=== PATIENT | male | born 1950 | race Caucasian/White ===

== ENCOUNTER 2021-10-07 10:24 | Observation (INO) | payer OTHER ==
[~2021-10-07] VITALS: Ht 166.4 cm; Wt 64.5 kg
[2021-10-07 11:12] LABS: BASO # 0.1 K/mm3 (0.0-0.2); BASO % 0.6 % (0.0-2.0); EOS # 0.2 K/mm3 (0.0-0.7); EOS % 1.6 % (0.0-4.0); GRAN # 4.5 K/mm3 (1.4-6.5); GRAN % 46.3 % (42.2-75.2); HEMATOCRIT 44.2 % (42.0-52.0); HEMOGLOBIN 15.4 g/dl (13.5-18.0); LYMPH # 3.9 K/mm3 (1.2-3.4); MEAN CELL VOLUME 93 fl (80.0-100.0); MEAN CORPUSCULAR HEMOGLOBIN 32 pg (27-31); MEAN CORPUSCULAR HGB CONC 35 g/dl (33.0-37.0); MEAN PLATELET VOLUME 10.1 fl (7.4-10.4); MONO # 1.1 K/mm3 (0.1-0.6); MONO % 11.3 % (1.7-9.3); PLATELET COUNT 167 K/mm3 (130-400); RED BLOOD COUNT 4.78 M/mm3 (4.20-5.60); REDCELL DISTRIBUTION WIDTH-CV 13.8 % (11.5-14.5)
[2021-10-07 11:20] LABS: PROTHROMBIN TIME 11.6 SECONDS (9.7-12.8)
[2021-10-07 11:31] LABS: ALANINE AMINOTRANSFERASE 20 U/L (0-55); ALBUMIN 3.5 gm/dL (3.4-4.8); ALKALINE PHOSPHATASE 52 U/L (40-150); ANION GAP 9 mmol/L (7-16); AST,SGOT 27 U/L (5-34); BILIRUBIN,TOTAL 0.5 mg/dL (0.2-1.2); BLOOD UREA NITROGEN 17 mg/dL (8-26); CALCIUM 9.3 mg/dL (8.4-10.2); CARBON DIOXIDE 25 mmol/L (23-31); CHLORIDE 101 mmol/L (98-107); CREATININE, serum 0.94 mg/dL (0.72-1.25); GLUCOSE 93 mg/dL (70-99); POTASSIUM 4.4 mmol/L (3.5-4.5); SODIUM 135 mmol/L (136-145); TOTAL PROTEIN 7.1 gm/dL (6.2-8.1)
[2021-10-07 11:38] LABS: TROPONIN-I < 0.010 ng/mL (0.00-0.033)
[2021-10-07] MEDS ORDERED: DEPAKOTE500 MG PO (11:38)
[2021-10-07] MEDS ORDERED: MOBIC15 MG PO (11:38)
[2021-10-07] MEDS ORDERED: VITAMIN B650 MG (11:38)
[2021-10-07] MEDS ORDERED: PROAIR HFA0.09 MG/AC IH (11:38)
[2021-10-07] MEDS ORDERED: B-121000 MCG PO (11:38)
[2021-10-07] MEDS ORDERED: LIPITOR 80MG80 MG PO (11:39)
[2021-10-07 14:17] LABS: COLLECTION METHOD CLEAN CATCH
[2021-10-07 14:23] LABS: PH 7 (5-8); SQUAMOUS EPITHELIAL None Seen /hpf (0-10); URINE APPEARANCE Clear (CLEAR/HAZY); URINE BACTERIA None Seen /hpf (NONE SEEN); URINE BILIRUBIN Negative (NEGATIVE); URINE BLOOD 1+ (NEGATIVE); URINE COLOR Yellow (YELLOW); URINE GLUCOSE Negative (NEGATIVE); URINE KETONE Negative (NEGATIVE); URINE LEUKOCYTE ESTERASE Negative (NEGATIVE); URINE NITRATE Negative (NEGATIVE); URINE PROTEIN(semi-quant) Negative (NEGATIVE); URINE UROBILINOGEN Negative (NEGATIVE); URINE WBC 0-2 /hpf (0-2)
--- NOTE | 2021-10-07 15:41 | NUR ---
Pt. escorted to unit via wheelchair from ED. He is alert & oriented. Denies pain. No tremors noted at this time. Skin is intact. Pt. oriented to room, call light, bathroom, visitor policy. Pt. brought in home meds - those have been placed in med room. Attempted to notify pharmacy but they may be gone for the day. Pt. denies further needs at this time. Call light is within his reach
[2021-10-07 15:57] VITALS: BP 176/93; PULSE 76
--- NOTE | 2021-10-07 17:45 | NUR ---
Radiology here to escort patient for CT angiogram
--- NOTE | 2021-10-07 18:30 | NUR ---
Pt is back from radiology. Per radiology staff, IV site to left ac has infiltrated. Site noted to be puffy and slightly red. Pt. currently denies pain. Will attempt to initiate new IV site
[2021-10-07 19:45] VITALS: BP 178/82; PULSE 66; TEMP 98.2
--- NOTE | 2021-10-07 20:00 | NUR ---
IV STARTED TO LFA ON FIRST ATTEMPT. WILL COMPLETE CURRENT IVF INFUSING, THEN CAP. PT IS ALERT AND ORIENTED X4. DENIES DIZZINESS OR WEAKNESS. BED ALARM ON FOR SAFETY.
--- NOTE | 2021-10-07 21:00 | NUR ---
HS DEPAKOTE GIVEN, PT TAKES WITHOUT PROBLEM. ASSISTED TO BATHROOM, STEADY GAIT, VOIDS AND BACK TO BED.
[2021-10-07 23:38] VITALS: BP 163/67; PULSE 70; TEMP 98.2
[2021-10-08] VITALS (9 sets, daily range): BP systolic 145–210; BP diastolic 79–113; PULSE 75–101; TEMP 97.9–98.9
--- NOTE | 2021-10-08 03:00 | NUR ---
PT AMBULATES IN HALLWAY, UNSURE WHERE BATHROOM IS, REDIRECTED BACK TO ROOM, VOIDS AND BCK TO BED. BED ALARM ON.
[2021-10-08 06:57] LABS: BASO # 0.1 K/mm3 (0.0-0.2); BASO % 0.8 % (0.0-2.0); EOS # 0.3 K/mm3 (0.0-0.7); EOS % 3.5 % (0.0-4.0); GRAN % 47.5 % (42.2-75.2); HEMATOCRIT 44.8 % (42.0-52.0); HEMOGLOBIN 15.3 g/dl (13.5-18.0); LYMPH # 2.9 K/mm3 (1.2-3.4); LYMPH % 35.1 % (20.0-51.0); MEAN CELL VOLUME 95 fl (80.0-100.0); MEAN CORPUSCULAR HEMOGLOBIN 33 pg (27-31); MEAN CORPUSCULAR HGB CONC 34 g/dl (33.0-37.0); MEAN PLATELET VOLUME 10.8 fl (7.4-10.4); MONO # 1.1 K/mm3 (0.1-0.6); MONO % 12.9 % (1.7-9.3); PLATELET COUNT 161 K/mm3 (130-400); REDCELL DISTRIBUTION WIDTH-CV 13.7 % (11.5-14.5)
[2021-10-08 07:10] LABS: ALBUMIN 3.2 gm/dL (3.4-4.8); CALCIUM 8.6 mg/dL (8.4-10.2); CREATININE, serum 0.87 mg/dL (0.72-1.25); MAGNESIUM 2.1 mg/dL (1.6-2.6); PHOSPHOROUS 3.8 mg/dL (2.3-4.7); POTASSIUM 4.4 mmol/L (3.5-4.5)
--- NOTE | 2021-10-08 08:00 | NUR ---
PATIENT IS ORIENTED BUT DOES DISPLAY OCCATIONAL FORGETFULNESS. VSS ON TELE. DENIES PAIN OR NAUSEA. PATIENT SCHEDULED FOR SEVERAL TEST TODAY INCLUDING MRI. LEFT FORARM IV TO INT. NEURO CHECKS Q4H. HEAD TO TOE ASSESSMENT COMPLETE. AM MEDS GIVEN. NO OTHER NEEDS AT THIS TIME. CALL LIGHT IN REACH.
--- NOTE | 2021-10-08 14:01 | NUR ---
plant maintenance worker met with patient to discuss discharge plan. Patient currently lives at home alone in [place]. He reports to being fully independent with his ADL's and does not use any DME to assist with mobility. Patient does not have any home oxygen needs. [facility] is the [place] [facility]. Patient states that he does have a DPO[employer] listing his daughter Wade Rodriguez ([phone]) as his agent. Discharge plan: Home; pending PT baljit
--- NOTE | 2021-10-08 18:30 | NUR ---
PATIENT C/O YEE. CALLED HOSPITALIST, GAVE PRN TYLENOL
--- NOTE | 2021-10-08 21:00 | NUR ---
Shift report received, assumed care at 1900. Assessment complete at this time. A&Ox3 but appears to be foregetful. Denies pain/nausea/shortness of breath. VS remain stable. Currently INT to left FA-flushes without difficulty. SCDs bilat. TELE reports SR. NC have been WNL. Denies current needs. Call light in reach. Will monitor.
[2021-10-09] VITALS (7 sets, daily range): BP systolic 145–190; BP diastolic 83–105; PULSE 66–86; TEMP 97.7–98.1
--- NOTE | 2021-10-09 | NUR ---
Neuro WNL-very drowsy. Denies current needs. Call light in reach. Will monitor.
--- NOTE | 2021-10-09 03:00 | NUR ---
Order clarification on ordered IV fluids-TRACEE Cox states fluids can be DCd.
--- NOTE | 2021-10-09 05:45 | NUR ---
Has had an uneventful night. Appeared to be resting well. NC WNL. VS remained stable. Patient appears to be foregetful but A&O. Denies current needs. Call light in reach. Will monitor.
[2021-10-09 06:42] LABS: BASO # 0.1 K/mm3 (0.0-0.2); EOS # 0.2 K/mm3 (0.0-0.7); EOS % 2.2 % (0.0-4.0); GRAN # 4.5 K/mm3 (1.4-6.5); HEMATOCRIT 44.5 % (42.0-52.0); HEMOGLOBIN 15.9 g/dl (13.5-18.0); LYMPH # 3.2 K/mm3 (1.2-3.4); LYMPH % 34.7 % (20.0-51.0); MEAN CELL VOLUME 92 fl (80.0-100.0); MEAN CORPUSCULAR HEMOGLOBIN 33 pg (27-31); MEAN CORPUSCULAR HGB CONC 36 g/dl (33.0-37.0); MEAN PLATELET VOLUME 10.5 fl (7.4-10.4); MONO # 1.1 K/mm3 (0.1-0.6); MONO % 11.8 % (1.7-9.3); PLATELET COUNT 172 K/mm3 (130-400); RED BLOOD COUNT 4.85 M/mm3 (4.20-5.60); REDCELL DISTRIBUTION WIDTH-CV 13.7 % (11.5-14.5)
[2021-10-09 07:01] LABS: ALBUMIN 3.3 gm/dL (3.4-4.8); CALCIUM 8.8 mg/dL (8.4-10.2); CREATININE, serum 0.86 mg/dL (0.72-1.25); PHOSPHOROUS 3.5 mg/dL (2.3-4.7); POTASSIUM 3.9 mmol/L (3.5-4.5)
[2021-10-09] MEDS ORDERED: ASPIRIN 81M81 MG/TA2 PO (07:58)
[2021-10-09] MEDS ORDERED: ZESTRIL 10MG10 MG PO (07:58)
[2021-10-09] MEDS ORDERED: NORVASC 5MG5 MG/TAB PO ×3 (08:02→17:12)
--- NOTE | 2021-10-09 13:29 | NUR ---
First visit from the cleaning technician. No needs right now.
--- NOTE | 2021-10-09 15:50 | NUR ---
PATIENT AFTERNOON VITALS NOTED ELEVATED B/P. NOTIFIED HOSPITALIST. SEE NEW ORDER BEFORE DISCHARGE. STILL OKAY WITH DISCHARGE
--- NOTE | 2021-10-09 16:30 | NUR ---
UPDATED HOSPITALIST WITH C/P CHECKS. ORDERS TO RECHECK B/P AT 1700 AND CALL RESULTS.
--- NOTE | 2021-10-09 17:26 | NUR ---
PATIENT B/P IMPROVED AND PATIENT CLEARED FOR DISCHARGE BY . GAVE DISCHARGE INSTRUCTIONS, E-SCRIPTS SENT, AND F/U APT DISCUSSED. SON AT BEDSIDE. IV DC'D & COVERED WITH GAUZE & COBAN. PATIENT IS DRESSED, PACKED AND ESCORTED OUT VIA AMBULATORY TO PERSONAL VEHICLE.
== END 2021-10-09 17:30 | disposition home or self-care (01) ==
LOC: COL.ER 10:24 → SURG 13:13
PROVIDERS: Emergency Medicine; ADMIT Internal Medicine
DX: R42 Dizziness and giddiness (principal); I67.1 Cerebral aneurysm, nonruptured; I11.9 Hypertensive heart disease without heart failure; I34.0 Nonrheumatic mitral (valve) insufficiency; G40.A09 Absence epileptic syndrome, not intractable, without status epilepticus; I70.90 Unspecified atherosclerosis; F17.210 Nicotine dependence, cigarettes, uncomplicated; Z95.828 Presence of other vascular implants and grafts; Z79.899 Other long term (current) drug therapy
CPT/HCPCS: 99233-AI; A9575; G0378; J2060; J7030; Q9967

== ENCOUNTER → 2023-07-15 | Outpatient (CLI) | payer OTHER ==
[~2023-07-15] MED LIST: AMOXICILLIN 8751 TAB PO; ASPIRIN 81M81 MG/TA2 PO; B-121000 MCG PO; CEPHALEXIN500 M1 PO; DEPAKOTE500 MG PO; LIPITOR 80MG80 MG PO; MIRALAX PA17 GM/Dose PO; MOBIC15 MG PO; NORCO 325 MG-51 TAB PO; NORVASC 5MG5 MG/TAB PO; PROAIR HFA0.09 MG/AC IH; PROTONIX 40MG T40 MG PO; STOOL SOFTENER100 M2 PO; VITAMIN B650 MG; ZESTRIL 10MG10 MG PO
== END ==
LOC: COL.RAD 13:00
DX: Z01.89 Encounter for other specified special examinations (principal)